=== PATIENT | female | born 1995 | race Caucasian/White ===

== ENCOUNTER 2019-01-25 07:31 | Inpatient (IN) | payer OTHER ==
[~2019-01-25] VITALS: Ht 160 cm; Wt 52.0 kg
[2019-01-25] MEDS ORDERED: IPRA4AER IH (07:53)
[2019-01-25] MEDS ORDERED: SODIUM CHLORIDE 0.9% 1,000 ML IV ONE (08:30)
[2019-01-25] MEDS ORDERED: ONDANSETRON HCL 4 MG/2 ML VIAL IVP PRN (08:30)
[2019-01-25] MEDS ORDERED: MAGNESIUM HYDROXIDE SUSPENSION 30 ML UDCUP PO PRN (08:30)
[2019-01-25 08:37] LABS: BASOPHILS % (AUTO) 0.7 % (0.0-2.0); EOSINOPHILS % (AUTO) 2.4 % (1.0-6.0); LYMPHOCYTES # (AUTO) 1.9 K/uL (1.0-4.8); LYMPHOCYTES % (AUTO) 25.4 % (22.0-44.0); MEAN CORPUSCULAR HEMOGLOBIN 29.7 pg (26.0-34.0); MEAN CORPUSCULAR HGB CONC 33.4 G/dL (31.0-37.0); MEAN CORPUSCULAR VOLUME 89 fL (80-100); MONOCYTES # (AUTO) 0.5 K/uL (0.1-1.0); MONOCYTES % (AUTO) 6.5 % (2.0-9.0); NEUTROPHILS # (AUTO) 4.7 K/uL (1.8-7.7); PLATELET COUNT (AUTO) 186 K/uL (150-450); RED BLOOD CELL COUNT(AUTO) 4.72 MIL/uL (4.00-5.20); RED CELL DISTRIBUTION WIDTH 13.9 % (11.5-14.5)
[2019-01-25 09:03] LABS: ANION GAP 10 mmol/L (8-16); CALCIUM, TOTAL 8.6 mg/dL (8.8-10.5); CARBON DIOXIDE 26 mmol/L (22-29); CHLORIDE 105 mmol/L (98-107); CREATININE 0.54 mg/dL (0.60-1.30); GLOMERULAR FILTR. RATE CALC > 60 mL/min (>60); GLUCOSE,RANDOM 83 mg/dL (70-110); POTASSIUM 3.9 mmol/L (3.5-5.1); SODIUM SERUM 141 mmol/L (136-145); UREA NITROGEN, BLOOD 12 mg/dL (7-18)
[2019-01-25 09:13] LABS: ALANINE AMINOTRANSFERASE 20 U/L (12-78); ALBUMIN 3.7 g/dL (3.4-5.0); ALKALINE PHOSPHATASE 69 U/L (46-116); ASPARTATE AMINOTRANSFERASE 17 U/L (15-37); BILIRUBIN,TOTAL 0.8 mg/dL (0.1-1.0); HCG,QUANTITATIVE < 1 mIU/mL (0-6); TOTAL PROTEIN, SERUM 6.6 g/dL (6.4-8.2)
[2019-01-25] MEDS: FAMOTIDINE 20 MG TABLET PO SCH (09:46)
[2019-01-25 09:53] VITALS: BP 109/57
[2019-01-25 13:42] LABS: GLUCOSE,POINT OF CARE 88 MG/DL (70-110)
[2019-01-25] MEDS: ACETAMINOPHEN 325 MG TABLET PO PRN (14:49)
[2019-01-25 15:50] VITALS: BP_SYST 107; BP_SYST 99; BP_DIAS 58; BP_DIAS 75
[2019-01-25 20:19] VITALS: BP 114/62
[2019-01-25 23:50] VITALS: BP 100/64
[2019-01-26] VITALS (7 sets, daily range): BP systolic 105–121; BP diastolic 61–73
[2019-01-26] MEDS ORDERED: 0.9% SODIUM CHLORIDE 5 ML NEB SOLUTION NEB ONE (00:11)
[2019-01-26] MEDS: ACETAMINOPHEN 325 MG TABLET PO PRN (01:53)
[2019-01-26] MEDS: FAMOTIDINE 20 MG TABLET PO SCH (08:21)
[2019-01-26] MEDS: QUEtiapine FUMARATE 25 MG TABLET PO PRN (20:45)
[2019-01-27 04:00] VITALS: BP 104/65
[2019-01-27] MEDS ORDERED: QUET25TA PO (08:17)
[2019-01-27 08:26] VITALS: BP 107/74
[2019-01-27] MEDS: FAMOTIDINE 20 MG TABLET PO SCH (08:30)
[2019-01-27 12:02] VITALS: BP 112/53
[2019-01-27 15:37] VITALS: BP 97/66
[2019-01-27] MEDS: ACETAMINOPHEN 325 MG TABLET PO PRN (15:55)
[2019-01-27 19:34] VITALS: BP 123/83
[2019-01-27] MEDS: QUEtiapine FUMARATE 25 MG TABLET PO PRN (19:56)
[2019-01-27 23:25] VITALS: BP 123/65
[2019-01-28 05:40] VITALS: BP 123/83
[2019-01-28 07:46] VITALS: BP 108/70
[2019-01-28] MEDS: ACETAMINOPHEN 325 MG TABLET PO PRN (08:22)
[2019-01-28] MEDS: FAMOTIDINE 20 MG TABLET PO SCH (08:23)
[2019-01-28 11:42] VITALS: BP 113/68
[2019-01-28 16:02] VITALS: BP 100/66
[2019-01-28 20:29] VITALS: BP 123/82
[2019-01-28] MEDS: QUEtiapine FUMARATE 25 MG TABLET PO PRN (20:30)
[2019-01-29 00:26] VITALS: BP 112/63
[2019-01-29 04:55] VITALS: BP 116/74
[2019-01-29 08:10] VITALS: BP 105/67
[2019-01-29] MEDS: FAMOTIDINE 20 MG TABLET PO SCH (09:04)
[2019-01-29 12:10] VITALS: BP 104/66
[2019-01-29 15:42] VITALS: BP 122/78
[2019-01-29 19:55] VITALS: BP 103/69
[2019-01-29] MEDS: QUEtiapine FUMARATE 25 MG TABLET PO PRN (20:53)
[2019-01-30 00:16] VITALS: BP 119/63
[2019-01-30 04:42] VITALS: BP 102/68
[2019-01-30 07:28] VITALS: BP 122/74
[2019-01-30] MEDS ORDERED: ACET-784 PO (07:59)
[2019-01-30] MEDS ORDERED: MOM30 PO (07:59)
[2019-01-30] MEDS ORDERED: ACET-2247 PO (08:01)
[2019-01-30] MEDS: FAMOTIDINE 20 MG TABLET PO SCH (08:27)
== END 2019-01-30 10:45 | DRG 897 ==
LOC: EMS 07:31 → 6S 08:11
PROVIDERS: ADMIT Internal Medicine; ATTEND Internal Medicine
DX: F11.10 Opioid abuse, uncomplicated (principal); F17.210 Nicotine dependence, cigarettes, uncomplicated; J45.909 Unspecified asthma, uncomplicated; F31.9 Bipolar disorder, unspecified; F15.90 Other stimulant use, unspecified, uncomplicated; Z79.899 Other long term (current) drug therapy
CPT/HCPCS: J2405; J7030